=== PATIENT | male | born 1960 | race Caucasian/White ===

== ENCOUNTER 2018-02-28 17:41 | Inpatient (IN) | payer OTHER ==
[2018-02-28] MEDS ORDERED: BISACODYL (EC) 5 MG TAB PO (18:30)
[2018-02-28] MEDS ORDERED: LORAZEPAM 2 MG INJ IV (18:30)
[2018-02-28] MEDS ORDERED: HYDROCODONE/APAP (5/325) TAB PO (18:30)
[2018-02-28] MEDS ORDERED: DOCUSATE SODIUM 100 MG CAP PO (18:30)
[2018-02-28] MEDS ORDERED: NACL 0.9% 3 ML SYG IV (18:30)
[2018-02-28] MEDS ORDERED: MAGNESIUM HYDROXIDE 30ML CUP PO (18:30)
[2018-02-28] MEDS ORDERED: ONDANSETRON 4 MG INJ IV (18:30)
[2018-02-28] MEDS ORDERED: ACETAMINOPHEN 325 MG TAB PO (18:30)
[2018-02-28] MEDS ORDERED: INSULIN ASPART [NOVOLOG] 3 ML PEN SC (19:00)
[2018-02-28 19:19] LABS: ADD MAN DIFF? NO
[2018-02-28 19:23] LABS: BASOPHIL # 0.1 10^3/ul (0.0-0.1); BASOPHILS % 0.6 % (0.0-2.0); EOSINOPHILS % 0.5 % (0.0-7.0); HEMOGLOBIN 16.3 g/dl (14.0-18.0); LYMPHOCYTES % 12.3 % (15.0-51.0); MEAN CORPUSCULAR HEMOGLOBIN 31.6 pg (29.0-33.0); MEAN CORPUSCULAR HGB CONC 34.7 g/dl (32.0-37.0); MEAN CORPUSCULAR VOLUME 91.1 fl (82.0-101.0); MEAN PLATELET VOLUME 11.3 fl (7.4-10.4); MONOCYTE # 0.6 10^3/ul (0.3-0.9); NEUTROPHIL # 6.3 10^3/ul (1.6-7.5); NEUTROPHILS % 79.3 % (39.0-77.0); PLATELET COUNT 185 10^3/UL (140-415); RED BLOOD COUNT 5.16 10^6/ul (4.70-6.10); RED CELL DISTRIBUTION WIDTH 12.2 % (11.5-14.5)
[2018-02-28 19:23] LABS: WHITE BLOOD COUNT 7.9 10^3/ul (4.8-10.8)
[2018-02-28 19:41] LABS: LACTIC ACID 1.2 mmol/L (0.5-2.0)
[2018-02-28 19:43] LABS: CREATINE KINASE 59 IU/L (23-200)
[2018-02-28 19:44] LABS: ALANINE AMINOTRANSFERASE 288 IU/L (13-69); ALBUMIN 4.2 g/dl (3.3-4.9); ALKALINE PHOSPHATASE 70 IU/L (42-121); ANION GAP 14 (8-16); ASPARTATE AMINO TRANSFERASE 134 IU/L (15-46); BILIRUBIN,INDIRECT 0.5 mg/dl (0-1.1); BILIRUBIN,TOTAL 0.5 mg/dl (0.2-1.3); BLOOD UREA NITROGEN 10 mg/dl (7-20); CARBON DIOXIDE 27 mmol/L (21-31); CHLORIDE 106 mmol/L (97-110); CREATININE 0.69 mg/dl (0.61-1.24); GLUCOSE 118 mg/dl (70-220); POTASSIUM 3.9 mmol/L (3.5-5.1); SODIUM 143 mmol/L (135-144)
[2018-02-28 19:57] LABS: AMMONIA 14 umol/l (9-30)
[2018-02-28] MEDS: METOPROLOL 25 MG TAB PO (20:38)
[2018-02-28] MEDS: ATORVASTATIN 20 MG TAB PO (20:38)
[2018-02-28] MEDS: morphine 2 MG INJ IV (20:50)
[2018-02-28] MEDS: DEXTROSE 5%-0.45% NACL 1,000 ML IV (21:54)
[2018-02-28] MEDS: LEVETIRACETAM 1000 MG (PMX) 100 ML IVPB (21:54)
[2018-02-28] MEDS: LORAZEPAM 2 MG INJ IV (22:10)
[2018-02-28] MEDS: Insulin NOVOLOG SS MILD Algorithm (NPO/TPN/ENTERAL FEEDS) SC (23:47)
[2018-03-01] MEDS ORDERED: Insulin NOVOLOG SS MODERATE Algorithm(NPO/TPN/ENTERAL FEEDS) SC
[2018-03-01] MEDS ORDERED: ACCU-CHEK XX (02:00)
[2018-03-01] MEDS: DEXTROSE 5%-0.45% NACL 1,000 ML IV ×2 (03:49→09:17)
[2018-03-01] MEDS: PANTOPRAZOLE 40 MG INJ IV (05:20)
[2018-03-01] MEDS: Insulin NOVOLOG SS MILD Algorithm (NPO/TPN/ENTERAL FEEDS) SC ×4 (05:22→23:35)
[2018-03-01 06:30] LABS: ADD UMIC YES; UR ASCORBIC ACID NEGATIVE (NEGATIVE); UR BILIRUBIN (Dip) NEGATIVE (NEGATIVE); UR BLOOD (Dip) 1+ mg/dL (NEGATIVE); UR CLARITY CLEAR (CLEAR); UR COLOR YELLOW (YELLOW); UR GLUCOSE (Dip) NEGATIVE (NEGATIVE); UR KETONES (Dip) 1+ mg/dL (NEGATIVE); UR LEUKOCYTE ESTERASE (Dip) NEGATIVE Leu/ul (NEGATIVE); UR MUCUS FEW /HPF (NONE SEEN); UR NITRITE (Dip) NEGATIVE (NEGATIVE); UR RBC 5 /HPF (0-5); UR SPECIFIC GRAVITY (Dip) 1.015 (1.003-1.030); UR TOTAL PROTEIN (Dip) NEGATIVE (NEGATIVE); UR UROBILINOGEN (Dip) NEGATIVE (NEGATIVE); UR WBC 1 /HPF (0-5)
[2018-03-01 07:51] LABS: ADD MAN DIFF? NO
[2018-03-01 08:01] LABS: WHITE BLOOD COUNT 8.1 10^3/ul (4.8-10.8)
[2018-03-01 08:01] LABS: BASOPHILS % 0.4 % (0.0-2.0); EOSINOPHILS # 0.1 10^3/ul (0.0-0.5); EOSINOPHILS % 1.6 % (0.0-7.0); HEMATOCRIT 44.9 % (42.0-52.0); HEMOGLOBIN 15.4 g/dl (14.0-18.0); LYMPHOCYTES % 12.8 % (15.0-51.0); MEAN CORPUSCULAR HEMOGLOBIN 31.4 pg (29.0-33.0); MEAN CORPUSCULAR HGB CONC 34.3 g/dl (32.0-37.0); MEAN CORPUSCULAR VOLUME 91.6 fl (82.0-101.0); MEAN PLATELET VOLUME 11.3 fl (7.4-10.4); MONOCYTE # 0.6 10^3/ul (0.3-0.9); MONOCYTES % 7.3 % (0.0-11.0); NEUTROPHIL # 6.3 10^3/ul (1.6-7.5); NEUTROPHILS % 77.5 % (39.0-77.0); PLATELET COUNT 163 10^3/UL (140-415); RED CELL DISTRIBUTION WIDTH 12.3 % (11.5-14.5)
[2018-03-01 08:04] LABS: HEMOGLOBIN A1C 5.5 % (0-5.9)
[2018-03-01 08:34] LABS: ALANINE AMINOTRANSFERASE 264 IU/L (13-69); ALBUMIN 3.8 g/dl (3.3-4.9); ALBUMIN/GLOBULIN RATIO 1.22; ALKALINE PHOSPHATASE 64 IU/L (42-121); ANION GAP 16 (8-16); ASPARTATE AMINO TRANSFERASE 115 IU/L (15-46); BILIRUBIN,INDIRECT 0.7 mg/dl (0-1.1); BILIRUBIN,TOTAL 0.7 mg/dl (0.2-1.3); BLOOD UREA NITROGEN 11 mg/dl (7-20); CALCIUM 8.5 mg/dl (8.4-10.2); CARBON DIOXIDE 27 mmol/L (21-31); CHLORIDE 104 mmol/L (97-110); CHOL/HDL RATIO 3.1 RATIO; CHOLESTEROL 120 mg/dl (100-200); CREATININE 0.81 mg/dl (0.61-1.24); GLUCOSE 179 mg/dl (70-220); HDL CHOLESTEROL 38 mg/dl (30-78); LDL CHOLESTEROL,CALCULATED 54 mg/dl; MAGNESIUM 2.1 mg/dl (1.7-2.5); POTASSIUM 3.3 mmol/L (3.5-5.1); SODIUM 144 mmol/L (135-144); TOTAL PROTEIN 6.9 g/dl (6.1-8.1); TRIGLYCERIDES 139 mg/dl (0-149)
[2018-03-01] MEDS: ALLOPURINOL 300 MG TAB PO (09:00)
[2018-03-01] MEDS: AMLODIPINE 10 MG TAB PO (09:00)
[2018-03-01] MEDS: METOPROLOL 25 MG TAB PO ×2 (09:00→20:52)
[2018-03-01] MEDS: LEVETIRACETAM 1000 MG (PMX) 100 ML IVPB (09:13)
[2018-03-01 09:39] LABS: THYROID STIMULATING HORMONE 0.932 MIU/L (0.465-4.680)
[2018-03-01] MEDS: POTASSIUM CHLORIDE 100 ML IVPB ×2 (17:24→17:30)
[2018-03-01] MEDS: ATORVASTATIN 20 MG TAB PO (20:52)
[2018-03-01] MEDS: morphine 2 MG INJ IV (22:54)
[2018-03-02] MEDS: DEXTROSE 5%-0.45% NACL 1,000 ML IV ×4 (00:53→21:06)
[2018-03-02] MEDS: PANTOPRAZOLE 40 MG INJ IV (05:43)
[2018-03-02] MEDS: Insulin NOVOLOG SS MILD Algorithm (NPO/TPN/ENTERAL FEEDS) SC ×4 (05:50→21:21)
[2018-03-02 08:16] LABS: ADD MAN DIFF? NO
[2018-03-02 08:23] LABS: WHITE BLOOD COUNT 6.6 10^3/ul (4.8-10.8)
[2018-03-02 08:23] LABS: BASOPHILS % 0.5 % (0.0-2.0); EOSINOPHILS # 0.2 10^3/ul (0.0-0.5); EOSINOPHILS % 2.4 % (0.0-7.0); HEMATOCRIT 45.1 % (42.0-52.0); HEMOGLOBIN 15.4 g/dl (14.0-18.0); LYMPHOCYTES # 1.1 10^3/ul (0.8-2.9); LYMPHOCYTES % 16.2 % (15.0-51.0); MEAN CORPUSCULAR HEMOGLOBIN 31.5 pg (29.0-33.0); MEAN CORPUSCULAR HGB CONC 34.1 g/dl (32.0-37.0); MEAN CORPUSCULAR VOLUME 92.2 fl (82.0-101.0); MEAN PLATELET VOLUME 11.3 fl (7.4-10.4); MONOCYTE # 0.6 10^3/ul (0.3-0.9); MONOCYTES % 8.3 % (0.0-11.0); NEUTROPHIL # 4.8 10^3/ul (1.6-7.5); NEUTROPHILS % 72.3 % (39.0-77.0); PLATELET COUNT 159 10^3/UL (140-415); RED BLOOD COUNT 4.89 10^6/ul (4.70-6.10); RED CELL DISTRIBUTION WIDTH 12.2 % (11.5-14.5)
[2018-03-02 08:50] LABS: ANION GAP 14 (8-16); BLOOD UREA NITROGEN 12 mg/dl (7-20); CALCIUM 8.8 mg/dl (8.4-10.2); CARBON DIOXIDE 28 mmol/L (21-31); CHLORIDE 106 mmol/L (97-110); CREATININE 0.83 mg/dl (0.61-1.24); GLUCOSE 127 mg/dl (70-220); MAGNESIUM 2.3 mg/dl (1.7-2.5); POTASSIUM 3.6 mmol/L (3.5-5.1); SODIUM 144 mmol/L (135-144)
[2018-03-02] MEDS: ALLOPURINOL 300 MG TAB PO (09:00)
[2018-03-02] MEDS: AMLODIPINE 10 MG TAB PO (09:00)
[2018-03-02] MEDS: METOPROLOL 25 MG TAB PO ×3 (09:00→21:07)
[2018-03-02] MEDS: morphine 2 MG INJ IV ×2 (09:09→21:25)
[2018-03-02 09:23] LABS: PHOSPHORUS 3.6 mg/dl (2.5-4.9)
[2018-03-02] MEDS: ATORVASTATIN 20 MG TAB PO ×2 (21:00→21:07)
[2018-03-02] MEDS ORDERED: GLUCOSE GEL 15 GRAM TUBE BUCCAL (21:30)
[2018-03-02] MEDS ORDERED: GLUCOSE GEL 15 GRAM TUBE PO ×2 (21:30)
[2018-03-02] MEDS ORDERED: DEXTROSE 50% 50 ML SYRINGE IV ×2 (21:30)
[2018-03-02] MEDS ORDERED: GLUCAGON 1 MG INJ IM (21:30)
[2018-03-03] MEDS: PANTOPRAZOLE 40 MG INJ IV (05:47)
[2018-03-03] MEDS: DEXTROSE 5%-0.45% NACL 1,000 ML IV ×2 (05:52→12:00)
[2018-03-03] MEDS: Insulin NOVOLOG SS MILD Algorithm (NPO/TPN/ENTERAL FEEDS) SC ×3 (05:52→17:21)
[2018-03-03 08:27] LABS: ADD MAN DIFF? NO
[2018-03-03 08:30] LABS: BASOPHILS % 0.4 % (0.0-2.0); EOSINOPHILS # 0.1 10^3/ul (0.0-0.5); EOSINOPHILS % 1.8 % (0.0-7.0); HEMATOCRIT 45.5 % (42.0-52.0); LYMPHOCYTES # 0.9 10^3/ul (0.8-2.9); MEAN CORPUSCULAR HEMOGLOBIN 31.6 pg (29.0-33.0); MEAN CORPUSCULAR HGB CONC 35.2 g/dl (32.0-37.0); MEAN CORPUSCULAR VOLUME 89.7 fl (82.0-101.0); MONOCYTE # 0.6 10^3/ul (0.3-0.9); MONOCYTES % 7.8 % (0.0-11.0); NEUTROPHIL # 6.1 10^3/ul (1.6-7.5); NEUTROPHILS % 78.6 % (39.0-77.0); PLATELET COUNT 164 10^3/UL (140-415); RED BLOOD COUNT 5.07 10^6/ul (4.70-6.10); RED CELL DISTRIBUTION WIDTH 12.4 % (11.5-14.5)
[2018-03-03 08:30] LABS: WHITE BLOOD COUNT 7.7 10^3/ul (4.8-10.8)
[2018-03-03 08:51] LABS: ANION GAP 17 (8-16); BLOOD UREA NITROGEN 9 mg/dl (7-20); CALCIUM 8.9 mg/dl (8.4-10.2); CARBON DIOXIDE 26 mmol/L (21-31); CHLORIDE 104 mmol/L (97-110); GLUCOSE 136 mg/dl (70-220); MAGNESIUM 2.2 mg/dl (1.7-2.5); PHOSPHORUS 3.9 mg/dl (2.5-4.9); POTASSIUM 3.5 mmol/L (3.5-5.1); SODIUM 143 mmol/L (135-144)
[2018-03-03] MEDS: ALLOPURINOL 300 MG TAB PO (08:56)
[2018-03-03] MEDS: METOPROLOL 25 MG TAB PO ×2 (08:57→20:21)
[2018-03-03] MEDS: AMLODIPINE 10 MG TAB PO (08:57)
[2018-03-03 10:34] LABS: INR 0.97
[2018-03-03 11:37] LABS: PARTIAL THROMBOPLASTIN TIME 26.5 Sec (25.0-35.0)
[2018-03-03] MEDS: FENTAnyl 50 MCG/ML VIAL (13:36)
[2018-03-03] MEDS: PROPOFOL 20 ML (13:36)
[2018-03-03] MEDS: MIDAZOLAM 1 MG/ML 2 ML INJ (13:36)
[2018-03-03] MEDS ORDERED: FENTAnyl 50 MCG/ML VIAL IV (15:00)
[2018-03-03] MEDS ORDERED: ONDANSETRON 4 MG INJ IV (15:00)
[2018-03-03 15:28] LABS: CSF RBC 0 /uL (0-0); CSF WBC 0 /cmm (0-10)
[2018-03-03 15:35] LABS: CSF CLARITY CLEAR
[2018-03-03 15:35] LABS: CSF COLOR COLORLESS
[2018-03-03 15:36] LABS: CSF VOLUME 13.5 ml; CSF#TUBE COUNT TUBE#4; CSF#TUBES REC'D 4
[2018-03-03 16:08] LABS: GLUCOSE,CSF 78 mg/dl (50-80)
[2018-03-03 16:08] LABS: TOTAL PROTEIN,CSF 43 mg/dl (12-60)
[2018-03-03] MEDS: morphine 2 MG INJ IV ×2 (17:21→22:55)
[2018-03-03] MEDS: ATORVASTATIN 20 MG TAB PO (20:20)
[2018-03-04] MEDS: DEXTROSE 5%-0.45% NACL 1,000 ML IV ×4 (02:18→21:08)
[2018-03-04] MEDS: Insulin NOVOLOG SS MILD Algorithm (NPO/TPN/ENTERAL FEEDS) SC ×4 (06:00→18:00)
[2018-03-04] MEDS: PANTOPRAZOLE 40 MG INJ IV (06:17)
[2018-03-04] MEDS: LABETALOL HCL 20MG INJ IV (08:42)
[2018-03-04] MEDS: AMLODIPINE 10 MG TAB PO (09:00)
[2018-03-04] MEDS: ALLOPURINOL 300 MG TAB PO (09:00)
[2018-03-04] MEDS: METOPROLOL 25 MG TAB PO ×2 (09:00→21:00)
[2018-03-04] MEDS: morphine 2 MG INJ IV (12:34)
[2018-03-04] MEDS: ATORVASTATIN 20 MG TAB PO (21:00)
[2018-03-05] MEDS: Insulin NOVOLOG SS MILD Algorithm (NPO/TPN/ENTERAL FEEDS) SC ×4 (06:00→17:48)
[2018-03-05 06:12] LABS: ADD MAN DIFF? NO; BASOPHIL # 0.1 10^3/ul (0.0-0.1); BASOPHILS % 0.7 % (0.0-2.0); EOSINOPHILS # 0.3 10^3/ul (0.0-0.5); EOSINOPHILS % 3.5 % (0.0-7.0); HEMATOCRIT 44.8 % (42.0-52.0); HEMOGLOBIN 15.3 g/dl (14.0-18.0); LYMPHOCYTES # 1.2 10^3/ul (0.8-2.9); LYMPHOCYTES % 16.4 % (15.0-51.0); MEAN CORPUSCULAR HGB CONC 34.2 g/dl (32.0-37.0); MEAN CORPUSCULAR VOLUME 90.7 fl (82.0-101.0); MEAN PLATELET VOLUME 10.7 fl (7.4-10.4); MONOCYTE # 0.5 10^3/ul (0.3-0.9); MONOCYTES % 7.1 % (0.0-11.0); NEUTROPHIL # 5.3 10^3/ul (1.6-7.5); PLATELET COUNT 170 10^3/UL (140-415); RED BLOOD COUNT 4.94 10^6/ul (4.70-6.10); RED CELL DISTRIBUTION WIDTH 12.4 % (11.5-14.5)
[2018-03-05 06:12] LABS: WHITE BLOOD COUNT 7.4 10^3/ul (4.8-10.8)
[2018-03-05] MEDS: PANTOPRAZOLE 40 MG INJ IV (06:18)
[2018-03-05 06:37] LABS: ANION GAP 7 (8-16); BLOOD UREA NITROGEN 7 mg/dl (7-20); CALCIUM 8.8 mg/dl (8.4-10.2); CARBON DIOXIDE 30 mmol/L (21-31); CHLORIDE 106 mmol/L (97-110); CREATININE 0.89 mg/dl (0.61-1.24); GLUCOSE 118 mg/dl (70-220); MAGNESIUM 2.3 mg/dl (1.7-2.5); PHOSPHORUS 4.2 mg/dl (2.5-4.9); POTASSIUM 3.3 mmol/L (3.5-5.1); SODIUM 140 mmol/L (135-144)
[2018-03-05] MEDS: DEXTROSE 5%-0.45% NACL 1,000 ML IV ×2 (06:44→17:46)
[2018-03-05] MEDS: METOPROLOL 25 MG TAB PO ×2 (08:02→20:27)
[2018-03-05] MEDS: AMLODIPINE 10 MG TAB PO (08:03)
[2018-03-05] MEDS: ALLOPURINOL 300 MG TAB PO (08:03)
[2018-03-05] MEDS: POTASSIUM CHLORIDE 100 ML IVPB ×2 (11:57→13:49)
[2018-03-05] MEDS: ATORVASTATIN 20 MG TAB PO (20:27)
[2018-03-06] MEDS: LORAZEPAM 2 MG INJ IV (01:03)
[2018-03-06] MEDS: Insulin NOVOLOG SS MILD Algorithm (NPO/TPN/ENTERAL FEEDS) SC ×5 (06:00→23:30)
[2018-03-06] MEDS: DEXTROSE 5%-0.45% NACL 1,000 ML IV ×2 (06:04→14:46)
[2018-03-06] MEDS: PANTOPRAZOLE 40 MG INJ IV (06:05)
[2018-03-06 06:09] LABS: ADD MAN DIFF? NO
[2018-03-06 06:24] LABS: WHITE BLOOD COUNT 6.6 10^3/ul (4.8-10.8)
[2018-03-06 06:24] LABS: BASOPHILS % 0.6 % (0.0-2.0); EOSINOPHILS # 0.2 10^3/ul (0.0-0.5); EOSINOPHILS % 2.7 % (0.0-7.0); HEMATOCRIT 46.7 % (42.0-52.0); HEMOGLOBIN 16.2 g/dl (14.0-18.0); LYMPHOCYTES # 1.2 10^3/ul (0.8-2.9); LYMPHOCYTES % 17.6 % (15.0-51.0); MEAN CORPUSCULAR HEMOGLOBIN 31.3 pg (29.0-33.0); MEAN CORPUSCULAR HGB CONC 34.7 g/dl (32.0-37.0); MEAN CORPUSCULAR VOLUME 90.3 fl (82.0-101.0); MONOCYTE # 0.6 10^3/ul (0.3-0.9); NEUTROPHIL # 4.6 10^3/ul (1.6-7.5); NEUTROPHILS % 69.8 % (39.0-77.0); PLATELET COUNT 176 10^3/UL (140-415); RED BLOOD COUNT 5.17 10^6/ul (4.70-6.10); RED CELL DISTRIBUTION WIDTH 12.4 % (11.5-14.5)
[2018-03-06 06:29] LABS: ANION GAP 14 (8-16); BLOOD UREA NITROGEN 8 mg/dl (7-20); CARBON DIOXIDE 28 mmol/L (21-31); CHLORIDE 105 mmol/L (97-110); CREATININE 0.89 mg/dl (0.61-1.24); GLUCOSE 107 mg/dl (70-220); MAGNESIUM 2.3 mg/dl (1.7-2.5); PHOSPHORUS 3.6 mg/dl (2.5-4.9); POTASSIUM 3.6 mmol/L (3.5-5.1); SODIUM 143 mmol/L (135-144)
[2018-03-06] MEDS: METOPROLOL 25 MG TAB PO ×2 (08:38→21:03)
[2018-03-06] MEDS: ALLOPURINOL 300 MG TAB PO (08:39)
[2018-03-06] MEDS: AMLODIPINE 10 MG TAB PO (08:39)
[2018-03-06] MEDS: ATORVASTATIN 20 MG TAB PO (21:03)
[2018-03-07] MEDS: ZOLPIDEM 5 MG TAB PO (00:45)
[2018-03-07] MEDS: DEXTROSE 5%-0.45% NACL 1,000 ML IV ×2 (05:28→10:18)
[2018-03-07] MEDS: PANTOPRAZOLE 40 MG INJ IV (05:28)
[2018-03-07 07:15] LABS: ADD MAN DIFF? NO
[2018-03-07 07:21] LABS: BASOPHILS % 0.5 % (0.0-2.0); EOSINOPHILS # 0.2 10^3/ul (0.0-0.5); EOSINOPHILS % 2.8 % (0.0-7.0); HEMATOCRIT 43.8 % (42.0-52.0); HEMOGLOBIN 15.4 g/dl (14.0-18.0); LYMPHOCYTES # 1.4 10^3/ul (0.8-2.9); LYMPHOCYTES % 19.4 % (15.0-51.0); MEAN CORPUSCULAR HEMOGLOBIN 31.3 pg (29.0-33.0); MEAN CORPUSCULAR HGB CONC 35.2 g/dl (32.0-37.0); MONOCYTE # 0.7 10^3/ul (0.3-0.9); MONOCYTES % 9.1 % (0.0-11.0); NEUTROPHILS % 67.8 % (39.0-77.0); PLATELET COUNT 175 10^3/UL (140-415); RED BLOOD COUNT 4.92 10^6/ul (4.70-6.10); RED CELL DISTRIBUTION WIDTH 12.4 % (11.5-14.5)
[2018-03-07 07:21] LABS: WHITE BLOOD COUNT 7.4 10^3/ul (4.8-10.8)
[2018-03-07 07:42] LABS: ANION GAP 12 (8-16); BLOOD UREA NITROGEN 6 mg/dl (7-20); CALCIUM 8.8 mg/dl (8.4-10.2); CARBON DIOXIDE 27 mmol/L (21-31); CHLORIDE 106 mmol/L (97-110); CREATININE 0.92 mg/dl (0.61-1.24); GLUCOSE 107 mg/dl (70-220); MAGNESIUM 2.2 mg/dl (1.7-2.5); PHOSPHORUS 3.3 mg/dl (2.5-4.9); POTASSIUM 3.5 mmol/L (3.5-5.1); SODIUM 141 mmol/L (135-144)
[2018-03-07] MEDS: INSULIN ASPART [NOVOLOG] 3 ML PEN SC ×3 (08:00→17:14)
[2018-03-07] MEDS: ALLOPURINOL 300 MG TAB PO (08:35)
[2018-03-07] MEDS: METOPROLOL 25 MG TAB PO (08:36)
[2018-03-07] MEDS: AMLODIPINE 10 MG TAB PO (08:36)
[2018-03-07] MEDS ORDERED: morphine LIQ (10 MG/5 ML) CUP PO (18:00)
== END 2018-03-07 19:19 | DRG 100 ==
LOC: MS4 17:41
PROC: 009U3ZX Drainage of Spinal Canal, Percutaneous Approach, Diagnostic (ICD-10-PCS; principal; 2018-03-03)
DX: R56.9 Unspecified convulsions (principal); G93.40 Encephalopathy, unspecified; I10 Essential (primary) hypertension; M10.9 Gout, unspecified; E61.1 Iron deficiency; K21.9 Gastro-esophageal reflux disease without esophagitis; E78.5 Hyperlipidemia, unspecified; M48.061 Spinal stenosis, lumbar region without neurogenic claudication; F41.9 Anxiety disorder, unspecified; F32.9 Major depressive disorder, single episode, unspecified; F29 Unspecified psychosis not due to a substance or known physiological condition; Z18.89 Other specified retained foreign body fragments; G93.89 Other specified disorders of brain
CPT/HCPCS: 71045; 80048; 80053; 80061; 81001; 82140; 82550; 82945; 82962; 83036; 83605; 83735; 84100; 84157; 84443; 85025; 85610; 85730; 87040; 87070; 87081; 89051; 92526; 92610; 93306; 93880; 95819